=== PATIENT | female | born 1995 | race Caucasian/White ===

== ENCOUNTER 2020-03-30 20:45 | Emergency (ER) | payer SELFPAY ==
[2020-03-30 22:08] VITALS: BP 140/100; PULSE 82; RESP 14; TEMP 38; O2SAT 100; BMI 17.7
[2020-03-30 22:20] VITALS: BP 136/92
[2020-03-30 22:42] VITALS: BP 122/92; PULSE 80; RESP 18; TEMP 38; O2SAT 100
--- NOTE | 2020-03-30 22:47 | ECG_ITS ---
Test Reason : SYNCOPE Blood Pressure : / mmHG Vent. Rate : 068 BPM Atrial Rate : 068 BPM P-R Int : 140 ms QRS Dur : 086 ms QT Int : 422 ms P-R-T Axes : 071 079 075 degrees QTc Int : 448 ms Normal sinus rhythm Early repolarization Otherwise normal ECG No previous ECGs available Referred By: Mariposa De Leon Electronically Signed By:GUSTABO OKEEFE MD
--- NOTE | 2020-03-30 22:47 | CT_ITS ---
EXAMINATION: NONCONTRAST HEAD CT NONCONTRAST CERVICAL SPINE CT INDICATION INFORMATION: Syncopal episode. Head injury. Loss of consciousness. Confusion. Neck pain. COMPARISON: None TECHNIQUE: Separate noncontrast CT examinations of the head and cervical spine were performed. Coronal and sagittal images were created for each examination at the technologist workstation. This CT examination was performed using dose optimization techniques as appropriate, variously including the following: *Automated exposure control *Adjustment of mA and/or kV according to patient size (this includes techniques or standardized protocols for targeted exams where dose is matched to indication/reason for exam; i.e. extremities or head) *Use of iterative reconstruction technique DLP: 956 mGy-cm FINDINGS: Head: There is no evidence of acute intracranial hemorrhage or territorial infarction. No abnormal mass effect or midline shift is seen. Lomeli to white matter differentiation is well preserved. No extra-axial fluid collections are identified. No hydrocephalus. No significant volume loss. There is no abnormal attenuation within the brain parenchyma. There is minimal left frontal soft tissue swelling. No calvarial fracture. The mastoid air cells and visualized portions of the paranasal sinuses are well aerated. Cervical spine: There is anatomic alignment of the vertebral bodies and posterior elements. The atlantoaxial and atlantooccipital articulations are intact. Vertebral body heights and intervertebral disc spaces are maintained. No evidence of acute fracture. No prevertebral soft tissue swelling. Visualized portions of the lung apices are unremarkable. The thyroid gland is unremarkable. CT/CT cervical spine wo con IMPRESSION: 1. No acute intracranial finding. 2. No acute fracture or malalignment of the cervical spine.
--- NOTE | 2020-03-30 22:49 | XR_ITS ---
EXAMINATION: XR THORACOLUMBAR SPINE CLINICAL INFORMATION: Syncopal episode. Back pain. COMPARISON: None TECHNIQUE: 2 views FINDINGS: The vertebral alignment is normal. No intrinsic bony abnormality. The disc heights are normal. The endplates and posterior elements are normal. No fracture or subluxation. The surrounding prevertebral soft tissues are unremarkable. XR/XR thoracic spine 2V IMPRESSION: No compression fractures or subluxations are identified. The disc spaces are preserved. No endplate changes are seen. The prevertebral soft tissues are normal.
--- NOTE | 2020-03-30 22:49 | XR_ITS ---
EXAMINATION: XR LUMBOSACRAL SPINE CLINICAL INFORMATION: Syncopal episode. Back pain. COMPARISON: None TECHNIQUE: Three views of the lumbosacral spine. FINDINGS: The vertebral bodies and posterior elements are normal. The disc spaces are preserved and the vertebral alignment is normal. The paraspinal soft tissues are normal. XR/XR lumbar spine 2-3V IMPRESSION: Unremarkable examination.
--- NOTE | 2020-03-30 22:49 | XR_ITS ---
EXAMINATION: XR SHOULDER, LEFT CLINICAL INFORMATION: Syncopal episode. Left shoulder pain. COMPARISON: None TECHNIQUE: Two views of the left shoulder. FINDINGS: The bones and soft tissues are normal. No fracture. Glenohumeral and acromioclavicular alignment is anatomic with normal joint space. No abnormal soft tissue calcifications. XR/XR shoulder LT min 2V IMPRESSION: Normal left shoulder.
--- NOTE | 2020-03-30 22:51 | ED.SYNCOPE ---
HPI - Syncope General Chief Complaint: Syncope Stated Complaint: head injury Time Seen by Provider: 03/30/20 22:30 Source: patient Mode of arrival: ambulatory Limitations: altered mental status (confused ) History of Present Illness HPI narrative: 24yoF c PMHx of syncopal episodes of unknown etiology, seizures and male to female transgender presenting to the ED with complaints of having a syncopal episode possibly a seizure at around 4:30pm when she was about to take an exam for college in her apartment she is currently studying at [employer]. Reports she woke up a few hours later and noticed she had a lump on the left side of her forehead and bruising to the left side of her shoulder. She also reports confusion, headache and enture body aching. Denies any prior symptoms prior to the syncopal episode. Denies any additional symptoms complaints or concerns. Denies any SI/HI/auditory visual hallucinations or thoughts of self injury. Patient reports she has had an EEG in the past and possibly an MRI or CT scan of her brain which she reports were within normal limits. Related Data Previous Rx's Medication Instructions Recorded acetaminophen [Tylenol] 650 mg PO Q6H PRN #10 tab 03/31/20 acetaminophen-codeine 1 tab PO Q8H PRN #10 tab 03/31/20 Allergies Allergy/AdvReac Type Severity Reaction Status Date / Time No Known Allergies Allergy Verified 03/30/20 22:47 Review of Systems Review of Systems: Constitutional : No Weight loss, No Fever, No Chills, No Night Sweats, No Fatigue, No Malaise ENT/Mouth : No Hearing loss, No Ear Pain, No Nasal Congestion, No Sinus Pain, No Hoarseness, No sore throat, No Rhinorrhea, No Swallowing Difficulty Eyes: No Eye Pain, No Swelling, No Redness, No Foreign Body, No Discharge, No Vision Changes Cardiovascular : No Chest Pain, No SOB, No Dyspnea on Exertion, No Orthopnea, No Edema, No Palpitations Respiratory : No Cough, No Sputum, No Wheezing, No Smoke Exposure, No Dyspnea Gastrointestinal : No Nausea, No Vomiting, No Diarrhea, No Constipation, No abdominal Pain, No Hematochezia, No Melena Genitourinary : no irregular bleeding, No Dysuria, No Urinary Frequency, No Hematuria, No Urinary Incontinence, No Urgency, No Flank Pain, No Urinary Flow Changes, No Hesitancy Musculoskeletal : + joint pain, + Myalgias, No Joint Swelling Skin : No Skin Lesions, No rash Neuro : + Loss of Consciousness, + Headache, No Dizziness, No Weakness, No Numbness, No Paresthesias, Psych : No Anxiety/Panic, No Depression, No SI/HI/AH/VH, No Social Issues, Heme/Lymph: No Bruising, No Bleeding,No Lymphadenopathy Endocrine : No Polyuria, No Polydipsia, No Temperature Intolerance Yes all other systems are reviewed and are negative [facility] Past Medical History Attestation statement: The following information was validated with the patient. Medical History Seizures Syncope Social History Social History Smoking Status: Never smoker Use of substances other than those prescribed or required for medical reasons: Yes Substance Use Type: Marijuana Advance Directives: No Physical Exam Vital Signs: Vital Signs: Vital Signs Temp Pulse Resp BP Pulse Ox 03/30/20 23:00 98.6 F 78 14 122/92 H 03/30/20 22:58 100 03/30/20 22:42 100.4 F 80 18 122/92 H 100 03/30/20 22:20 136/92 H 03/30/20 22:08 100.4 F 82 14 140/100 H 100 Body Mass Index 17.7 Vital signs have been reviewed as normal and appeared to be correct. Blood pressure normal. Heart rate normal. Respiration rate normal. Temperature normal. Oxygen saturation normal. Appearance: Alert. Confused. No acute distress. Head: STS c to left side of forehead c ecchymosis. No Palencia signs or raccoon eyes noted. Able to rotate head bilaterally. Eyes: PERRLA. EOMI. No nystagmus noted. Conjunctiva and sclera normal. Eyelids normal. Corneal reflex normal. ENT: EAC normal. TM's Normal. No hemotympanum noted. Hearing normal. No septal hematoma noted. Pharynx normal. Uvula midline. tongue midline. Moist mucous membranes. No trismus noted. No drooling noted. No muffled voice noted. Neck: Normal inspection. Neck supple. FROM. No adenopathy. Thyroid Normal. No meningeal signs. No neck mass noted. CVS: Normal heart rate and rhythm. Heart sound normal. No murmurs noted. Pulses normal throughout. Respiratory: No respiratory distress. Painless inspiration. Breath sounds normal. No wheezes/rales/rhonchi noted. Chest nontender. No accessory muscle usage noted or decreased air movement noted. Abdomen: Soft and nontender. Bowel sounds normal in all 4 quadrants. No distention noted. No organomegaly noted. No visible injury noted. Back: No CVA tenderness. Full range of motion noted. Skin: Skin warm and dry. Normal skin color. Normal skin turgor. No rashes/lesions/lacerations noted. Extremities: left shoulder c sts and ecchymosis c FROM. No obvious deformities noted. No lower extremity edema. Extremities exhibit normal range of motion. All other Extremities nontender. Able to shrug shoulders bilaterally and keep up against resistance. Neuro: Orientated to self. Confused to place and time. No motor deficit. No sensory deficit. Reflexes normal. Moving all extremities. No focal motor deficits. Cranial nerves II-XI intact bilaterally. Facial strength normal. Normal cognition. Speech normal. Gait normal. Strength 5/5 throughout. No pronator drift. No tremor noted. No fasciculations noted. Muscle tone normal throughout. No asterixis noted. Mvophd-th-ytrt test normal. Heel to florian test normal. Tandem gait normal. Does not sway with eyes open. Romberg test negative. Rapid alternating movement upper extremity normal. Rapid alternating movement lower extremity normal. Hand drop from overhead-Mrs. face. No rigidity noted. NIHSS score 0. Course Course Course Narrative: 22:47PM - 24yoF c PMHx of syncopal episodes of unknown etiology, seizures and male to female transgender presenting to the ED after having a syncopal/ ? seizure episode [employer] dredge boat [employer] that was unwitnessed with head injury and loss of consciousness. Not on blood thinners. Presenting with bruising and soft tissue swelling to left forehead and left shoulder. With associated confusion, headache and entire body aching. - on exam patient is noted to be confused although no neuro deficits noted. Vital signs are stable within normal limits. - Concern for syncopal episode vs seizure vs electrolyte abnormality - Plan: Labs, EKG, CT scan of brain/cervical spine, Thoracic/lumbar spine imaging. Provide IVF's and tylenol and re-evaluate. Reevaluation(s) Reevaluation #1: Patient with elevated white blood cell count at 13,000 otherwise all other labs are within normal limits. Normal limits no acute processes noted. Cervical spine CT scan within normal limits no acute processes noted. X-ray to left shoulder/thoracic and lumbar spine within normal limits no acute processes noted. EKG normal sinus rhythm no acute ischemic changes noted. Unknown cause of the patient's syncope possible seizure although due to patient having a history of this will refer her to Neurology. I offered admission for observation and patient declined at this time. Will DC home with symptomatic treatment along with instructions return if any new or worsening symptoms to stay with a friend tonight to not stay alone. Patient understands agrees with this plan. Time: 00:43 MDM - Syncope Medical Records Attestation: I reviewed the patient's medical records. Lab Data Attestation: I reviewed the patient's lab results. Result diagrams: 03/30/20 22:46 03/30/20 22:46 Labs: Lab Results 03/30/20 03/30/20 03/30/20 Range/Units 22:46 22:46 22:46 WBC 13.1 H (4.8-10.8) X10*3/uL RBC 4.71 (4.20-5.50) X10*6/uL Hgb 14.1 (12.0-16.0) g/dl Hct 41.8 (37-47) % MCV 88.7 (80-98) fL MCH 29.9 (27.0-33.0) pg MCHC 33.7 (31.0-35.0) g/dl RDW 12.0 (11.0-16.0) % Plt Count 349 (160-400) X10*3/uL MPV 9.9 (9.4-12.3) fL Immature Gran % (Auto) 0.4 (0.0-0.4) % Neut % (Auto) 85.0 H (45-73) % Lymph % (Auto) 10.4 L (20-40) % Sullivan % (Auto) 3.9 (2-11) % Eos % (Auto) 0.0 (0-4) % Baso % (Auto) 0.3 (0-2) % Lymph # (Auto) 1.4 (1.2-4.9) X10*3/uL Sullivan # (Auto) 0.5 (0.1-1.2) X10*3/uL Eos # (Auto) 0.0 (0.0-0.4) X10*3/uL Baso # (Auto) 0.0 (0.0-0.2) X10*3/uL Abs Immat Gran (auto) 0.05 H (0.00-0.03) X10*3/uL Absolute Neuts (auto) 11.1 H (2.0-8.3) X10*3/uL Absolute Nucleated RBC 0.000 (0.0-0.012) X10*3/uL Nucleated RBC % (auto) 0.0 (0.0-0.2) /100WBC PT 11.5 (10.8-13.0) SEC INR 1.0 (0.9-1.1) Sodium 139 (135-145) mmol/L Potassium 4.0 (3.3-5.1) mmol/l Chloride 102 (96-108) mmol/L Carbon Dioxide 26 (22-29) mmol/L Anion Gap 15 (12-20) BUN 12 (9-16) mg/dL Creatinine 0.82 (0.5-1.4) mg/dL Estim Creat Clear Calc 92.4 Estimated GFR > 60 Random Glucose 88 (60-115) mg/dL Calcium 9.0 (8.4-10.2) mg/dL Magnesium 2.5 (1.6-2.6) mg/dL Total Bilirubin 1.4 H (0.0-1.0) mg/dL Direct Bilirubin 0.6 H (0.0-0.5) mg/dL AST 18 (5-31) U/L ALT 15 (0-31) U/L Alkaline Phosphatase 60 (39-117) U/L Total Protein 7.6 (6.5-8.0) g/dL Albumin 4.6 (3.5-5.0) g/dL Imaging Data ct brain/cervical spine: Attestation: I personally reviewed and interpreted this imaging study as follows: Radiologist's impression: Head: There is no evidence of acute intracranial hemorrhage or territorial infarction. No abnormal mass effect or midline shift is seen. Lomeli to white matter differentiation is well preserved. No extra-axial fluid collections are identified. No hydrocephalus. No significant volume loss. There is no abnormal attenuation within the brain parenchyma. There is minimal left frontal soft tissue swelling. No calvarial fracture. The mastoid air cells and visualized portions of the paranasal sinuses are well aerated. Cervical spine: There is anatomic alignment of the vertebral bodies and posterior elements. The atlantoaxial and atlantooccipital articulations are intact. Vertebral body heights and intervertebral disc spaces are maintained. No evidence of acute fracture. No prevertebral soft tissue swelling. Visualized portions of the lung apices are unremarkable. The thyroid gland is unremarkable. CT/CT cervical spine wo con IMPRESSION: 1. No acute intracranial finding. 2. No acute fracture or malalignment of the cervical spine. left shoulder: Attestation: I personally reviewed and interpreted this imaging study as follows: Radiologist's impression: FINDINGS: The bones and soft tissues are normal. No fracture. Glenohumeral and acromioclavicular alignment is anatomic with normal joint space. No abnormal soft tissue calcifications. XR/XR shoulder LT min 2V IMPRESSION: Normal left shoulder. thoracic/lumbar spine xray: Attestation: I personally reviewed and interpreted this imaging study as follows: Radiologist's impression: FINDINGS: The vertebral alignment is normal. No intrinsic bony abnormality. The disc heights are normal. The endplates and posterior elements are normal. No fracture or subluxation. The surrounding prevertebral soft tissues are unremarkable. XR/XR thoracic spine 2V IMPRESSION: No compression fractures or subluxations are identified. The disc spaces are preserved. No endplate changes are seen. The prevertebral soft tissues are normal. ECG Data Attestation: I personally reviewed and interpreted this ECG as follows: ECG interpretation date: 03/30/20 ECG interpretation time: 22:56 Interpretation: Normal sinus rhythm with ventricular rate of 68 with a normal SC interval and normal QRS, normal QT/QTC interval. No acute ischemic changes noted. No prior EKGs to compare. Discharge Plan Discharge Clinical Impression: Head injury with loss of consciousness, Sprain of left shoulder Syncope Qualifiers: Syncope type: unspecified Qualified Code(s): R55 - Syncope and collapse Contusion Qualifiers: Encounter type: initial encounter Contusion area: head Contusion of head detail: other part of head Qualified Code(s): S00.83XA - Contusion of other part of head, initial encounter Patient Disposition: Home, Self-Care Instructions: Syncope (ED), Concussion (ED), Contusion in Adults (ED), Shoulder Sprain (ED) Prescriptions: New acetaminophen [Tylenol] 325 mg tablet 650 mg PO Q6H PRN (Reason: pain) Qty: 10 RF: 0 acetaminophen-codeine 300-30 mg tablet 1 tab PO Q8H PRN (Reason: pain) Qty: 10 RF: 0 Referrals: Rocio Maddox MD [Physician] - 2 days Stand Alone Forms: Work/School Release
--- NOTE | 2020-03-30 22:52 | PC.NURSE ---
Pt remains confused but able to follow commands. Is speaking slowly. No unlat neuro deficits noted. Pt thinks she fell around 4:30pm and 5pm. Bruising on forehead is darkening. Pt has very superficial scratches on left wrist. states she had done that intentionally a while ago but that she is not SI. Pt is oriented x 3.
[2020-03-30 22:53] LABS: MANUAL DIFF FLAG NO
[2020-03-30 22:55] LABS: Basophils Percent Auto 0.3 % (0-2); Hematocrit 41.8 % (37-47); Hemoglobin 14.1 g/dl (12.0-16.0); Imm Gran Abs Auto 0.05 X10*3/uL (0.00-0.03); Imm Gran Pct Auto 0.4 % (0.0-0.4); Lymphocytes Absolute Auto 1.4 X10*3/uL (1.2-4.9); Lymphocytes Percent Auto 10.4 % (20-40); Mean Corpuscular HGB Conc 33.7 g/dl (31.0-35.0); Mean Corpuscular Hemoglobin 29.9 pg (27.0-33.0); Mean Corpuscular Volume 88.7 fL (80-98); Mean Platelet Volume 9.9 fL (9.4-12.3); Monocytes Absolute Auto 0.5 X10*3/uL (0.1-1.2); Monocytes Percent Auto 3.9 % (2-11); Neutrophils Absolute Auto 11.1 X10*3/uL (2.0-8.3); Platelet Count 349 X10*3/uL (160-400); Red Blood Count 4.71 X10*6/uL (4.20-5.50); White Blood Count 13.1 X10*3/uL (4.8-10.8)
[2020-03-30 22:58] VITALS: O2SAT 100
[2020-03-30 23:00] VITALS: BP 122/92; PULSE 78; RESP 14; TEMP 37
[2020-03-30 23:06] LABS: Prothrombin Time 11.5 SEC (10.8-13.0)
[2020-03-30 23:37] LABS: Alanine Aminotransferase 15 U/L (0-31); Albumin Level 4.6 g/dL (3.5-5.0); Alkaline Phosphatase 60 U/L (39-117); Anion Gap 15 (12-20); Aspartate Amino Transferase 18 U/L (5-31); Bilirubin Direct 0.6 mg/dL (0.0-0.5); Bilirubin Total 1.4 mg/dL (0.0-1.0); Blood Urea Nitrogen 12 mg/dL (9-16); Carbon Dioxide 26 mmol/L (22-29); Chloride 102 mmol/L (96-108); Creatinine Clr Calc Pharmacy 92.4; Estimated Glomerular Filt Rate > 60; Glucose Random 88 mg/dL (60-115); Magnesium 2.5 mg/dL (1.6-2.6); Sodium 139 mmol/L (135-145); Total Protein 7.6 g/dL (6.5-8.0)
[2020-03-31] MEDS: 0.9 % Sodium Chloride 1,000 ML 999 ML IVCONT (00:18)
[2020-03-31] MEDS: Acetaminophen 325 MG TABLET 975 MG PO (00:18)
== END 2020-03-31 01:35 | disposition home or self-care (01) ==
PROVIDERS: Physician Assistant Medical; Emergency Provider Internal Medicine
DX: S06.0X1A Concussion with loss of consciousness of 30 minutes or less, initial encounter (principal); S00.83XA Contusion of other part of head, initial encounter; G44.309 Post-traumatic headache, unspecified, not intractable; M25.512 Pain in left shoulder; M54.5 Low back pain; M54.6 Pain in thoracic spine; F12.90 Cannabis use, unspecified, uncomplicated; W01.0XXA Fall on same level from slipping, tripping and stumbling without subsequent striking against object, initial encounter; Y93.9 Activity, unspecified; Y92.9 Unspecified place or not applicable; Y99.9 Unspecified external cause status
CPT/HCPCS: 36415; 70450; 72070; 72100; 72125; 73030; 80048; 80076; 83735; 85025; 85610; 93005; 96374; 99285